=== PATIENT | male | born 1975 | race Native Hawaiian/Other Pacific Islander ===

== ENCOUNTER → 2017-02-11 | Outpatient (REF) | payer BC | LOC: M LAB REF 14:46 | PROVIDERS: ATTEND Internal Medicine | DX: E78.1 Pure hyperglyceridemia (principal) ==

== ENCOUNTER → 2017-05-27 | Outpatient (REF) | payer BC | LOC: M LAB REF 17:27 | PROVIDERS: ATTEND Internal Medicine | DX: E78.1 Pure hyperglyceridemia (principal) ==

== ENCOUNTER → 2017-09-10 | Outpatient (REF) | payer BC | LOC: M LAB REF 12:35 | PROVIDERS: ATTEND Internal Medicine | DX: E78.1 Pure hyperglyceridemia (principal) ==

== ENCOUNTER → 2017-12-27 | Outpatient (REF) | payer BC ==
[2017-12-28 08:07] LABS: LDL DIRECT 55 mg/dL (0-99)
== END ==
LOC: M LAB REF 12:59
DX: E78.1 Pure hyperglyceridemia (principal)
CPT/HCPCS: 83721

== ENCOUNTER → 2018-09-01 | Outpatient (REF) | payer BC ==
[2018-09-03 08:06] LABS: LDL DIRECT 68 mg/dL (0-99)
== END ==
LOC: M LAB REF 17:36
DX: E78.1 Pure hyperglyceridemia (principal)
CPT/HCPCS: 83721

== ENCOUNTER → 2018-12-05 | Outpatient (REF) | payer BC ==
[2018-12-06 09:10] LABS: LDL DIRECT 79 mg/dL (0-99)
== END ==
LOC: M LAB REF 13:31
PROVIDERS: ATTEND Internal Medicine
DX: E78.1 Pure hyperglyceridemia (principal)

== ENCOUNTER → 2019-08-25 | Outpatient (REF) | payer BC ==
[2019-08-27 10:07] LABS: LDL DIRECT 20 mg/dL (0-99)
== END ==
LOC: M LAB REF 16:12
PROVIDERS: ATTEND Internal Medicine
DX: E78.1 Pure hyperglyceridemia (principal)

== ENCOUNTER → 2019-08-28 | Outpatient (REF) | payer BC ==
[2019-09-02 00:07] LABS: C-PEPTIDE 2.6 ng/mL (1.1-4.4); INSULIN LEVEL 10.5 uIU/mL (2.6-24.9)
== END ==
LOC: M LAB REF 16:29
PROVIDERS: ATTEND Nurse Practitioner Family
DX: E11.9 Type 2 diabetes mellitus without complications (principal); E78.1 Pure hyperglyceridemia

== ENCOUNTER → 2019-11-30 | Outpatient (REF) | payer BC ==
[2019-12-01 08:07] LABS: LDL DIRECT 84 mg/dL (0-99)
== END ==
LOC: M LAB REF 13:42
PROVIDERS: ATTEND Internal Medicine
DX: E78.1 Pure hyperglyceridemia (principal); Z68.32 Body mass index [BMI] 32.0-32.9, adult

== ENCOUNTER → 2020-03-07 | Outpatient (REF) | payer BC | LOC: M LAB REF 18:10 | PROVIDERS: ATTEND Internal Medicine | DX: E78.1 Pure hyperglyceridemia (principal) ==

== ENCOUNTER → 2020-07-13 | Outpatient (REF) | payer BC ==
[2020-07-14 08:12] LABS: LDL DIRECT 49 mg/dL (0-99)
== END ==
LOC: M LAB REF 12:16
PROVIDERS: ATTEND Internal Medicine
DX: E78.1 Pure hyperglyceridemia (principal)

== ENCOUNTER → 2020-10-17 | Outpatient (REF) | payer BC ==
[2020-10-17 17:50] LABS: HEMOGLOBIN A1c 12.6 %
== END ==
LOC: M LAB REF 16:13
PROVIDERS: ATTEND Internal Medicine
DX: E11.65 Type 2 diabetes mellitus with hyperglycemia (principal); E78.1 Pure hyperglyceridemia; E02 Subclinical iodine-deficiency hypothyroidism; E66.3 Overweight

== ENCOUNTER → 2020-11-02 | Outpatient (REF) | payer BC ==
[2020-11-03 13:08] LABS: LDL DIRECT 69 mg/dL (0-99)
== END ==
LOC: M LAB REF 12:56
PROVIDERS: ATTEND Internal Medicine
DX: E78.1 Pure hyperglyceridemia (principal)

== ENCOUNTER → 2021-06-26 | Outpatient (REF) | payer BC ==
[2021-06-28 08:09] LABS: LDL DIRECT 75 mg/dL (0-99)
== END ==
LOC: M LAB REF 15:01
PROVIDERS: ATTEND Internal Medicine
DX: E78.1 Pure hyperglyceridemia (principal)

== ENCOUNTER → 2021-10-02 | Outpatient (REF) | payer BC | LOC: M LAB REF 16:25 | PROVIDERS: ATTEND Internal Medicine | DX: E78.1 Pure hyperglyceridemia (principal) ==

== ENCOUNTER → 2022-01-02 | Outpatient (REF) | payer BC ==
[2022-01-02 12:32] LABS: CHOLESTEROL LEVEL 195 MG/DL (<200); HDL CHOLESTEROL 25 MG/DL (>40); TRIGLYCERIDES LEVEL 496 MG/DL (<150)
== END ==
LOC: M LAB REF 11:44
PROVIDERS: ATTEND Internal Medicine
DX: E78.1 Pure hyperglyceridemia (principal)

== ENCOUNTER → 2022-09-10 | Outpatient (REF) | payer BC ==
[~2022-09-10] MED LIST: TRUL10IN
[2022-09-12 08:09] LABS: LDL DIRECT 14 mg/dL (0-99)
== END ==
LOC: M LAB REF 09:59
PROVIDERS: ATTEND Internal Medicine
DX: E78.1 Pure hyperglyceridemia (principal)

== ENCOUNTER 2022-09-11 08:09 | Emergency (ER) | payer BC ==
[~2022-09-11] VITALS: Ht 172.7 cm; Wt 85.9 kg
[2022-09-11] MEDS ORDERED: TRUL10IN (08:23)
[2022-09-11] MEDS ORDERED: NS 1,000 ML IV ONE (08:45)
[2022-09-11 10:44] LABS: BASO % 0.6 % (0.0-1.0); EOS # 0.1 10^3/uL (0.0-0.5); EOS % 1.9 % (0.0-3.0); HEMATOCRIT 42.2 % (42.0-52.0); LYMPH # 1.7 10^3/uL (1.5-5.0); LYMPH % 32.9 % (24.0-44.0); MEAN CORPUSCULAR VOLUME 82.9 fl (80.0-96.0); MONO # 0.5 10^3/uL (0.0-0.8); MONO % 9.2 % (2.0-8.0); NEUTROPHILS # 2.9 10^3/uL (1.5-8.5); PLATELET COUNT, AUTOMATED 277 10^3/uL (150-450); RED BLOOD COUNT 5.09 10^6/uL (4.30-6.10); WHITE BLOOD COUNT 5.2 10^3/uL (4.0-10.0)
[2022-09-11 11:12] LABS: HEMOGLOBIN A1c > 14.0 %
[2022-09-11 11:29] LABS: ALBUMIN 3.2 GM/DL (3.2-5.2); ALT/SGPT 42 U/L (12-78); BILIRUBIN,DIRECT < 0.1 MG/DL (0.0-0.2); BILIRUBIN,TOTAL 0.3 MG/DL (0.2-1.0); BLOOD UREA NITROGEN 10 MG/DL (7-18); CALCIUM LEVEL 7.8 MG/DL (8.5-10.1); CARBON DIOXIDE LEVEL 24 MEQ/L (21-32); CHLORIDE LEVEL 104 MEQ/L (98-107); CREATININE FOR GFR 0.82 MG/DL (0.70-1.30); GLOMERULAR FILTRATION RATE > 60.0 (>60); GLUCOSE, FASTING 327 MG/DL (70-100); POTASSIUM SERUM 5.9 MEQ/L (3.5-5.1); SODIUM LEVEL 136 MEQ/L (136-145); TOTAL PROTEIN 6.3 GM/DL (6.4-8.2)
[2022-09-11 11:51] LABS: HEMOGLOBIN 14.5 g/dl (13.5-17.5); MEAN CORPUSCULAR HEMOGLOBIN 28.5 pg (27.0-33.0)
[2022-09-11 11:54] LABS: MEAN CORPUSCULAR HGB CONC 33.7 g/dl (32.0-36.5)
[2022-09-11 12:49] VITALS: BP 130/72
[2022-09-11 12:49] LABS: CHOLESTEROL LEVEL 145 MG/DL (<200); CHOLESTEROL RISK RATIO 9.666 (<5); HDL CHOLESTEROL 15 MG/DL (>40); NON-HDL-C 130 MG/DL; TRIGLYCERIDES LEVEL 2050 MG/DL (<150)
== END 2022-09-11 12:52 | disposition home or self-care (01) ==
LOC: M ED 08:09
DX: E11.65 Type 2 diabetes mellitus with hyperglycemia (principal); E78.5 Hyperlipidemia, unspecified; K75.0 Abscess of liver; Z79.84 Long term (current) use of oral hypoglycemic drugs

== ENCOUNTER → 2023-06-03 | Outpatient (REF) | payer BC ==
[2023-06-05 10:10] LABS: LDL DIRECT 43 mg/dL (0-99)
== END ==
LOC: M LAB REF 16:23
PROVIDERS: ATTEND Internal Medicine
DX: E78.1 Pure hyperglyceridemia (principal)

== ENCOUNTER → 2023-09-09 | Outpatient (REF) | payer BC ==
[2023-09-11 09:10] LABS: LDL DIRECT 63 mg/dL (0-99)
== END ==
LOC: M LAB REF 16:52
PROVIDERS: ATTEND Internal Medicine
DX: E78.1 Pure hyperglyceridemia (principal)

== ENCOUNTER → 2024-01-10 | Outpatient (REF) | payer BC ==
[2024-01-12 08:08] LABS: LDL DIRECT 48 mg/dL (0-99)
== END ==
LOC: M LAB REF 16:25
PROVIDERS: ATTEND Internal Medicine
DX: E78.1 Pure hyperglyceridemia (principal)